=== PATIENT | female | born 1955 | race Caucasian/White ===

== ENCOUNTER → 2016-11-21 | Outpatient (CLI) | payer OTHER ==
[~2016-11-21] VITALS: Ht 167.6 cm; Wt 90.6 kg
[~2016-11-21] MED LIST: AUGM875T PO; BACT800T5 PO; BENZ100 PO; HYDR25TA5 PO; PROPOFOL 200 MG/20 ML AMP IV ONE; [UNRECOGNIZED DRUG - CODE] PO
[2016-11-21 09:18] VITALS: BP 143/79; PULSE 76; RESP 20; TEMP 97.7; O2SAT 97
[2016-11-21 12:40] VITALS: TEMP 97.7
[2016-11-21 13:00] VITALS: BP 145/76; PULSE 77; RESP 18; O2SAT 98
--- NOTE | 2016-11-21 13:30 | MR ---
cc: GENIA BISHOP M.D. DATE 11/21/2016 DATE OF 1955 INDICATION FOR THE PROCEDURE Evaluation of abdominal pain, screening colonoscopy average risk. Photographs were taken, no biopsies. PREMEDICATION Administered by anesthesiology. MONITORING Accomplished with pulse oximeter, EKG and blood pressure monitor. PROCEDURE NOTE After informed consent was obtained and the procedure, risks and benefits were explained including the risks of bleeding, sepsis, perforation, and the risk of anesthesia, the patient was placed in the left lateral position. The video colonoscope was inserted in the rectum. The colon exhibited a marginal prep with diffuse patchy thick liquefied stool throughout. This was cleared as best possible, but there were areas that were somewhat concentrated with this thick residual stool. Therefore, I could not rule out certain smaller polyps. The scope was advanced with difficulty to the cecal position. The patient had romano diverticulosis throughout moderate to severe. Multiple photographs were taken. The cecum was free of pathology. It was lavaged as best possible. The scope was gradually withdrawn. Once again, lavaging and cleaning the residual stool as best possible, but there was still some intact. Again I cannot rule out smaller lesions because of this marginal prep. I did not appreciate any colonic polyps, however, the mucosa did appear to be normal. The scope was removed. The patient tolerated the procedure well. She has some junctional hemorrhoids noted as well. IMPRESSION 1. Marginal prep with residual stool as outlined above. 2. Severe romano diverticulosis throughout the colon. 3. Exam was limited because of residual stool. PLAN Would recommend repeat colonoscopy in one to two years. We will discuss with the patient. Recommend a high fiber diet, fiber supplements. Continue antispasmodic therapy as well. MD DANIS Garzon/MCKINLEY /12:46 PM /1:27 PM
--- NOTE | 2016-11-21 14:50 | EKG ---
Date Performed: 11/21/2016 Time Performed: 09:56:19 PTAGE: 60 years EKG: Sinus rhythm NORMAL ECG NO PREVIOUS TRACING DOCTOR: Nam Alvarez Interpretating Date/Time 11/21/2016 14:49:06
== END ==
LOC: HEND 08:48
PROVIDERS: ATTEND Internal Medicine Gastroenterology
DX: R10.9 Unspecified abdominal pain (principal); K57.90 Diverticulosis of intestine, part unspecified, without perforation or abscess without bleeding; K64.8 Other hemorrhoids; I10 Essential (primary) hypertension; Z01.810 Encounter for preprocedural cardiovascular examination
CPT/HCPCS: 93005

== ENCOUNTER 2017-01-10 19:25 | Emergency (ER) | payer OTHER ==
[~2017-01-10] VITALS: Ht 167.6 cm; Wt 89.0 kg
[~2017-01-10 19:25] MED LIST changes: -AUGM875T PO; -BACT800T5 PO; -BENZ100 PO; -PROPOFOL 200 MG/20 ML AMP IV ONE; -[UNRECOGNIZED DRUG - CODE] PO
[2017-01-10 19:27] VITALS: BP 215/95; PULSE 108; RESP 16; TEMP 99; O2SAT 100
--- NOTE | 2017-01-10 19:45 | PD ---
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 Has had bleeding. Has had this for some time. Has uterine cancer and has appointment with cancer doctor on sunday. Concerned because of bleeding. Pelvic pain that comes and goes 5/10. Vitals are stable. Awaiting bed placement. Data Data Last Documented VS Vital Signs Date Time Temp Pulse Resp B/P Pulse Ox O2 Delivery O2 Flow Rate FiO2 01/10/17 19:27 99.0 108 16 215/[address] [facility] Medical Record Reviewed: Yes Supervised Visit with RICCO: No Juan Antonio Turk Jan 10, 2017 19:45
== END 2017-01-10 20:29 | disposition left against medical advice (07) ==
LOC: NED 20:20
DX: R10.2 Pelvic and perineal pain (principal); C55 Malignant neoplasm of uterus, part unspecified; Z53.21 Procedure and treatment not carried out due to patient leaving prior to being seen by health care provider
CPT/HCPCS: 99281

== ENCOUNTER 2017-01-22 13:02 | Inpatient (IN) | payer OTHER ==
[~2017-01-22] VITALS: Ht 167.6 cm; Wt 88.6 kg
[2017-01-23 06:37] VITALS: BP 154/86; PULSE 86; RESP 20; TEMP 98.3; O2SAT 98
[2017-01-23] MEDS ORDERED: HEPARIN SODIUM - SQ 10,000 UNITS/ML VIAL SQ SCH (06:45)
[2017-01-23] MEDS ORDERED: ceFAZolin 2 GM PREMIX 50 ML IV SCH (06:45)
[2017-01-23] MEDS ORDERED: POVIDONE IODINE 5% (ANTISEPSIS KIT) 4 APPLICATIONS EACH NARE PRN (07:15)
[2017-01-23] MEDS ORDERED: LACTATED RINGER'S 1000 ML IV PRN (07:15)
[2017-01-23] MEDS ORDERED: CHLORHEXIDINE GLUCONATE 2 % 1 PACK (2 CLOTHS) TOPICAL PRN (07:15)
[2017-01-23] MEDS ORDERED: INSULIN HUMAN REGULAR 1,000 UNITS/10 ML VIAL SQ PRN (07:15)
[2017-01-23] MEDS ORDERED: SODIUM CHLORID 0.9% 500 ML IV PRN (07:15)
[2017-01-23] MEDS ORDERED: METOPROLOL TARTRATE 25 MG TAB PO PRN (07:15)
[2017-01-23] MEDS ORDERED: DEXAMETHASONE SOD PHOS 4 MG/ML VIAL ONE (08:02)
[2017-01-23] MEDS ORDERED: ACETAMINOPHEN 1000 MG/100 ML VIAL IV ONE (08:02)
[2017-01-23] MEDS ORDERED: PHENYLEPH/NS 1000 MCG/10 ML SYR IV ONE (10:10)
[2017-01-23] MEDS ORDERED: PROPOFOL 200 MG/20 ML AMP IV ONE (10:10)
[2017-01-23] MEDS ORDERED: ePHEDrine/NS 25 MG/5 ML SYR IV ONE (10:10)
[2017-01-23] MEDS ORDERED: LACTATED RINGER'S 1000 ML INJ 1,000 ML IV ONE (10:11)
[2017-01-23] MEDS ORDERED: ONDANSETRON HCL 4 MG/2 ML VIAL IV PUSH ONE (10:11)
[2017-01-23] MEDS ORDERED: SUGAMMADEX SODIUM 200 MG/2 ML VIAL IV PUSH ONE ×2 (10:11)
[2017-01-23] MEDS ORDERED: NORMOSOL R INJ 1,000 ML IV ONE (10:12)
[2017-01-23] MEDS ORDERED: ceFAZolin INJ 1,000 MG VIAL IV ONE (11:28)
[2017-01-23] MEDS ORDERED: METHYLENE BLUE 10 MG/ML VIAL OTHER ONE (11:28)
[2017-01-23] MEDS: DEXT 5%-NACL 0.45% 1000 ML INJ 1,000 ML IV SCH ×2 (12:11→22:11)
[2017-01-23] MEDS ORDERED: D5-1/2 NS + KCL 20 MEQ INJ 1,000 ML IV SCH (12:11)
[2017-01-23] MEDS ORDERED: oxyCODONE/ACETAMINOPHEN 5 MG/325 MG TAB PO PRN (12:15)
[2017-01-23] MEDS ORDERED: NALOXONE HCL 0.4 MG/ML AMP IV PRN (12:15)
[2017-01-23] MEDS ORDERED: LORazepam 0.5 MG TAB PO PRN (12:15)
[2017-01-23] MEDS ORDERED: SODIUM CHLORIDE 0.9% FLUSH 10 ML FLUSH IV FLUSH PRN (12:15)
[2017-01-23] MEDS ORDERED: MORPHINE SULFATE 30 MG/30 ML PCA IV SCH (12:15)
[2017-01-23] MEDS ORDERED: ONDANSETRON HCL 4 MG/2 ML VIAL IVP PRN (12:15)
[2017-01-23] MEDS ORDERED: diphenhydrAMINE HCL 25 MG CAP PO PRN (12:15)
[2017-01-23] MEDS ORDERED: DO NOT ADM ANY ANTICOAGULANT DRUGS PRN (12:45)
[2017-01-23] MEDS ORDERED: MIDAZOLAM HCL 2 MG/2 ML VIAL ONE (12:52)
[2017-01-23] MEDS ORDERED: fentaNYL CITRATE 250 MCG/5 ML AMP ONE ×2 (12:53)
[2017-01-23] MEDS ORDERED: MORPHINE SULFATE 4 MG/ML INJ ONE (12:53)
[2017-01-23] MEDS: D5-1/2 NS + KCL 20 MEQ INJ 1,000 ML IV SCH (13:00)
[2017-01-23] MEDS: KETOROLAC TROMETHAMINE 30 MG/ML (IVP) VIAL IVP SCH ×2 (13:20→18:39)
[2017-01-23] MEDS: oxyCODONE/ACETAMINOPHEN 5 MG/325 MG TAB PO PRN ×2 (14:15→18:39)
[2017-01-23 14:21] VITALS: BP 137/73; PULSE 75; RESP 16; TEMP 96; O2SAT 100
[2017-01-23 15:50] VITALS: BP 136/73; PULSE 76; RESP 16; TEMP 97.5; O2SAT 100
[2017-01-23 19:29] LABS: HEMATOCRIT 34.8 % (35.0-46.0); MEAN CELL VOLUME 96.1 FL (80.0-100.0); MEAN CORPUSCULAR HGB CONC 32.3 % (32.0-36.0); PLATELET COUNT 353 TH/MM3 (150-450); RED BLOOD COUNT 3.63 MIL/MM3 (4.00-5.30); RED CELL DISTRIBUTION WIDTH 12.9 % (11.6-17.2); REVIEW FLAG FINAL; WHITE BLOOD COUNT 15.7 TH/MM3 (4.0-11.0)
[2017-01-23 20:00] VITALS: BP 151/81; PULSE 60; RESP 17; TEMP 97.3; O2SAT 100
[2017-01-23] MEDS: SODIUM CHLORIDE 0.9% FLUSH 10 ML FLUSH IV FLUSH SCH (21:00)
[2017-01-23] MEDS: PCA - TOTAL MG MORPHINE DELIVERED PER SHIFT SCH (22:55)
[2017-01-24] VITALS (8 sets, daily range): BP systolic 130–144; BP diastolic 58–66; PULSE 67–97; RESP 16–18; TEMP 96.3–100.3; O2SAT 97–100
[2017-01-24] MEDS: D5-1/2 NS + KCL 20 MEQ INJ 1,000 ML IV SCH ×3 (00:35→13:03)
[2017-01-24] MEDS: KETOROLAC TROMETHAMINE 30 MG/ML (IVP) VIAL IVP SCH ×4 (02:25→19:00)
[2017-01-24] MEDS: PCA - TOTAL MG MORPHINE DELIVERED PER SHIFT SCH ×3 (06:08→21:27)
[2017-01-24 07:49] LABS: AUTOMATED NEUTROPHIL # 6.8 TH/MM3 (1.8-7.7); BASOPHIL % 0.2 % (0.0-2.0); EOSINOPHIL % 0.5 % (0.0-4.0); HEMATOCRIT 29.3 % (35.0-46.0); HEMO FLAGS DIFF FINAL; LYMPH % 21.5 % (9.0-44.0); LYMPHOCYTE # 2.1 TH/MM3 (1.0-4.8); MEAN CELL VOLUME 96.4 FL (80.0-100.0); MEAN CORPUSCULAR HEMOGLOBIN 31.5 PG (27.0-34.0); MEAN CORPUSCULAR HGB CONC 32.7 % (32.0-36.0); MONO % 7.2 % (0.0-8.0); NEUT % 70.6 % (16.0-70.0); PLATELET COUNT 299 TH/MM3 (150-450); RED BLOOD COUNT 3.03 MIL/MM3 (4.00-5.30); WHITE BLOOD COUNT 9.6 TH/MM3 (4.0-11.0)
[2017-01-24 08:17] LABS: BICARBONATE 27.9 MEQ/L (21.0-32.0); POTASSIUM 3.6 MEQ/L (3.5-5.1)
[2017-01-24] MEDS: SODIUM CHLORIDE 0.9% FLUSH 10 ML FLUSH IV FLUSH SCH ×2 (13:02→21:28)
[2017-01-24] MEDS: DEXT 5%-NACL 0.45% 1000 ML INJ 1,000 ML IV SCH (17:54)
[2017-01-24] MEDS: oxyCODONE/ACETAMINOPHEN 5 MG/325 MG TAB PO PRN (21:27)
[2017-01-25] VITALS: BP 128/54; PULSE 92; RESP 18; TEMP 99.4; O2SAT 94
[2017-01-25] MEDS: KETOROLAC TROMETHAMINE 30 MG/ML (IVP) VIAL IVP SCH ×3 (00:38→13:24)
[2017-01-25] MEDS: DEXT 5%-NACL 0.45% 1000 ML INJ 1,000 ML IV SCH (04:11)
[2017-01-25] MEDS: PCA - TOTAL MG MORPHINE DELIVERED PER SHIFT SCH (05:58)
[2017-01-25 06:00] VITALS: BP 129/61; PULSE 88; RESP 17; TEMP 98; O2SAT 97
[2017-01-25 08:00] VITALS: BP 122/58; PULSE 73; RESP 20; TEMP 97.1; O2SAT 99
[2017-01-25] MEDS: SODIUM CHLORIDE 0.9% FLUSH 10 ML FLUSH IV FLUSH SCH ×2 (09:00→21:00)
[2017-01-25] MEDS: D5-1/2 NS + KCL 20 MEQ INJ 1,000 ML IV SCH (09:14)
[2017-01-25 12:53] VITALS: BP 128/60; PULSE 86; RESP 20; TEMP 99.2; O2SAT 98
--- NOTE | 2017-01-25 14:41 | MP ---
cc: DUTCH BELTRE MD, WENDY A. VAGOVIC, R. JOHN MD DATE OF SURGERY: 01/23/2017 PREOPERATIVE DIAGNOSIS Uterine sarcoma. POSTOPERATIVE DIAGNOSIS Uterine sarcoma. PROCEDURE Exploratory laparotomy, total abdominal hysterectomy, bilateral salpingo-oophorectomy, left pelvic lymph node biopsies, lysis of adhesions. SURGEON [place]. 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 ANESTHESIA General endotracheal. ESTIMATED BLOOD LOSS 600 cc. IV FLUIDS 2600 cc. URINE OUTPUT 400 cc. HISTORY A 61-year-old female who has been bleeding for a number of months, underwent evaluation, found to have an enlarged uterus with a prominent endometrium. 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 She was seen in the [facility] oncology office where these findings are reviewed. On exam the cervix was dilated with tumor extruding through the cervical os. The uterus was enlarged to approximately 14-16 cm on exam and imaging and exam showed widening of the lower uterine segment and cervix. Subsequently, she had a CAT scan of the chest. The CAT scan was clear. The abdomen and pelvis showed some retroperitoneal adenopathy in the left pelvis and left paraaortic region and some prominent fixed nodes in the paraaortic, pericaval region near the level of the renal vessels. She was counseled regarding the potential value of surgery and the potential need for additional treatment after surgery. She is seen again in the pre-op holding area where these findings are reviewed. Questions were answered. She expressed good understanding and agreed to move forward with surgery. FINDINGS Upon exploration the uterus is enlarged approximately 14-15 cm. The lower uterine segment and cervix are dilated. There are hypervascular changes around the cervix and lower uterine segment raising the possibility of microscopic tumor infiltration into these regions as well as vascular tissue between the bladder and lower uterine segment, and although there is no grossly visible tumor there is concern about possible tumor infiltration. The tubes and ovaries appear normal. Palpably enlarged lymph nodes are detected as shown by the CAT scan with a fixed conglomeration of lymph nodes high in the paraaortic pericaval region near the renal vessels. There are a couple of nodular borderline enlarged lymph nodes in the left pelvis. There were no peritoneal implants. The left-sided paraaortic adenopathy was not clearly palpable. She had extensive diverticulosis, especially in the descending colon, with some adhesions in the pelvis suggestive of possible prior diverticulitis. DETAILS OF PROCEDURE She is taken to the operating room, placed in dorsal lithotomy position. After general endotracheal anesthesia was administered a timeout was undertaken. She was identified by sight recognition and hospital ID syed, and the proposed procedure was reviewed and confirmed. She was prepped in sterile fashion and draped. Barrios catheter was placed. An incision was made from the symphysis to the umbilicus, carried down to the level of the fascia. The fascia was entered. The rectus muscles were in the midline. The peritoneal cavity was entered. A Bookwalter retractor was assembled. Lap pads were used to help facilitate surgical exposure after the anatomy was surveyed with findings as described above. The right round ligament was isolated. The anterior and posterior leafs of the broad ligament were opened. The right ligament was cauterized and secured using the Enseal instrument. Retroperitoneal dissection was carried out. The right ureter was identified. The right infundibulopelvic ligament was isolated. The intervening peritoneum was opened. The infundibulopelvic ligament was isolated near the level of the pelvic brim where it was doubly sealed and cut using the EnSeal. The bladder was densely adherent to the lower uterine segment and cervix. Sharp dissection was used to mobilize the bladder. There was some bleeding encountered and rendered hemostatic with bipolar cautery and local packing Attention was directed toward the left side. The left round ligament was isolated. The anterior and posterior leafs of the broad ligament were opened. Adhesions were taken down with sharp dissection to mobilize the colon from its attachment to the left pelvic structures and to free adhesions from the cul-de-sac. The left ureter was identified. The left infundibulopelvic ligament was isolated toward the level of the pelvic brim. The left gonadal vessels were doubly clamped, cut and doubly suture ligated. The uterine vessels were skeletonized bilaterally as further dissection was undertaken to mobilize the bladder flap. Scar tissue was eventually taken down. The bladder was able to be resected below the level of the cervix. The uterine vessels were then clamped, cautery sealed doubly bilaterally. The vessels were more prominent on the left side. There was some bleeding encountered so the left uterine vessels were then further clamped, cut and suture ligated. The cardinal, paracervical and uterosacral ligaments were isolated, clamped, sealed and transected in a stepwise fashion until curved Fernandez clamps were placed below the cervix at the lateral vaginal angles and sharp dissection was used to cut across the vagina below the cervix. The specimen was inspected, noted to be removed in its entirety including uterus, cervix, tubes and ovaries. The vaginal cuff was closed with interrupted [id number] 0 Vicryl suture starting at the corners, securing full-thickness including the edge of the uterosacral ligament and posterior peritoneum. [id number] sutures were continued in an interrupted fashion across the vaginal apex which rendered it completely hemostatic and well-supported. Palpation was used to again assess the anatomy. In the left pelvis there were two nodular enlargements that felt like prominent lymph nodes along the external iliac artery. Retroperitoneal dissection was carried out to isolate these lymph nodes using bipolar cautery and sharp dissection. These lymph nodes were removed and sent for permanent histopathologic analysis. The pelvis was thoroughly irrigated. Small bleeders were rendered hemostatic with bipolar cautery. 3-0 Vicryl sutures were used to reinforce the vascular pedicle on the left side. It was still showing some oozing. Inspected all sites and now hemostatic. Hemostatic agent Surgiflo was placed across the vaginal cuff and the lateral vaginal angles as well as the lymph node biopsy site. It was felt that the morbidity of attempting further lymph node dissection, especially high in the paraaortic region, would be associated with morbidity that exceeded benefit and it was felt that all reasonable surgical objectives in this individual had been completed. The lap pads and Bookwalter retractor were removed and disassembled. Visual and manual inspection confirmed there were no remaining foreign objects in the peritoneal cavity. Preliminary counts were correct. Prior to closing it should be noted that the integrity of the bladder was checked by filling the bladder with saline dyed with methylene blue. The bladder distended nicely under pressure and on visual and palpable inspection there were no areas of thinning of the bladder, certainly no extravasation of dye, good peristalsis of ureters bilaterally. The bladder was drained. The abdominal wall was closed with a running looped 0-PDS in a continuous modified Smead-Uriostegui fashion starting at the apices and meeting in the midpoint where sutures were tied. The subcutaneous tissue was irrigated. Geoff's fascia was re-approximated with 2-0 Vicryl suture. 3-0 Vicryl subcuticular was used to close the skin edges which was then covered with Steri-Strips and dry sterile dressing. Preliminary and final counts were correct. She was returned to dorsal supine position and was pending reversal of anesthesia when I left the operating room to precede her to the post-anesthesia care unit. MD MARISSA Leslie/PRABHAKAR /1:04 PM /2:13 PM
[2017-01-25 16:32] VITALS: BP 134/68; PULSE 81; RESP 20; TEMP 98.9; O2SAT 95
[2017-01-25] MEDS ORDERED: IBUPROFEN 400 MG TAB PO PRN (18:15)
[2017-01-25 20:00] VITALS: BP 135/72; PULSE 92; RESP 16; TEMP 99.2; O2SAT 98
[2017-01-26] VITALS: BP 121/58; PULSE 97; RESP 16; TEMP 98.3; O2SAT 96
[2017-01-26 04:00] VITALS: BP 116/61; PULSE 95; RESP 16; TEMP 97.9; O2SAT 93
[2017-01-26] MEDS ORDERED: OXYC1TAB63 PO (06:29)
[2017-01-26 08:00] VITALS: BP 121/58; PULSE 87; RESP 14; TEMP 98.2; O2SAT 96
[2017-01-26] MEDS: SODIUM CHLORIDE 0.9% FLUSH 10 ML FLUSH IV FLUSH SCH (09:00)
[2017-01-26 12:00] VITALS: BP 127/63; PULSE 90; RESP 14; TEMP 98.4; O2SAT 98
--- NOTE | 2017-01-30 13:04 | MD ---
cc: ARNOLDO CURRAN KELLY L. MD MORTON, WENDY A. ADMISSION DATE: 01/23/2017 DISCHARGE DATE: 01/26/2017 PROCEDURE 01/23 1017 - Exploratory laparotomy, total abdominal hysterectomy, bilateral salpingo-oophorectomy and left pelvic lymph node biopsies. DIAGNOSIS Uterine sarcoma. HOSPITAL COURSE She did well during hospitalization, tolerating oral intake, advanced to regular diet. Barrios catheter was removed; she voiding satisfactorily. She is hemodynamically stable. She has had adequate ins and outs. Postop H&H were 9.6 and 29.3, preserved renal function with BUN and creatinine 7 and 0.74. In the last 24 hours ins and outs 2141/1750 plus voiding. No nausea, vomiting, chest pain, shortness of breath. Positive flatus. Independent physical activity. PHYSICAL EXAMINATION VITAL SIGNS: Afebrile, pulse 81-97, respirations 16-20, blood pressure 116-135/58-72, O2 saturations greater than 95% while awake. GENERAL: Alert and oriented x 3, in no acute distress. LUNGS: Clear. She has some mild basilar rales. CARDIOVASCULAR: Regular rate and rhythm. ABDOMEN: Soft. Incisions clean and dry. QUICK SKETCH ARTIST: No bleeding. EXTREMITIES: Nontender. ASSESSMENT Postop day #3 doing well in her postoperative recovery. Subtle low grade temperature resolved, thought due to atelectasis. The findings and preliminary pathology were reviewed. The activities and restrictions were again discussed. Questions were answered. She expressed good understanding. PLAN Discharged to home. She has a prescription for Percocet for pain. She is not on any preexisting prescription medications and she is to contact our office to schedule followup in 2 weeks and to contact our office should she have any questions or problems between now the time of scheduled followup. MD MARISSA Leslie/SUSANNE /6:29 AM /12:55 PM
== END 2017-01-26 12:19 | disposition home or self-care (01) | DRG 740 ==
LOC: HSDI 01-23 06:30 → HOCB 01-23 13:50
PROVIDERS: ADMIT Obstetrics & Gynecology Gynecologic Oncology; ATTEND Obstetrics & Gynecology Gynecologic Oncology
PROC: 0UTC0ZZ Resection of Cervix, Open Approach (ICD-10-PCS; 2017-01-23)
PROC: 07BC0ZX Excision of Pelvis Lymphatic, Open Approach, Diagnostic (ICD-10-PCS; 2017-01-23)
PROC: 0UT20ZZ Resection of Bilateral Ovaries, Open Approach (ICD-10-PCS; 2017-01-23)
PROC: 0UT70ZZ Resection of Bilateral Fallopian Tubes, Open Approach (ICD-10-PCS; 2017-01-23)
PROC: 0UT90ZZ Resection of Uterus, Open Approach (ICD-10-PCS; principal; 2017-01-23 08:32)
DX: C55 Malignant neoplasm of uterus, part unspecified (principal); J98.11 Atelectasis; E66.9 Obesity, unspecified; I10 Essential (primary) hypertension; K57.30 Diverticulosis of large intestine without perforation or abscess without bleeding; Z68.31 Body mass index [BMI] 31.0-31.9, adult
CPT/HCPCS: 80048; 85025; 85027; 86850; 86900; 86901; 86920; 88305; 88307; 88309; 94150; J0131; J0690; J1100; J1644; J1885; J2250; J2270; J2370; J2405; J3010; J3480; J7120

== ENCOUNTER → 2017-01-22 | Outpatient (CLI) | payer OTHER ==
[~2017-01-22] MED LIST changes: -HYDR25TA5 PO; +IOHEXOL 350 MG/ML 10 ML VIAL (for RAD DIAG) IV ONE; +OXYC1TAB63 PO
--- NOTE | 2017-01-22 09:43 | RADRPT ---
EXAM DATE/TIME: 01/22/2017 08:04 [facility] COMPARISON: No previous studies available for comparison. INDICATIONS : Restaging; scheduled for hysterectomy/mastectomy 08/26/2016. IV CONTRAST: 100 cc Omnipaque 350 (iohexol) IV ; Cumulative dose for multiple exams. RADIATION DOSE: 18.75 CTDIvol (mGy) ; Combined studies - Thorax/Abdomen/Pelvis MEDICAL HISTORY : Carcinoma, breast. SURGICAL HISTORY : Cholecystectomy. section. ENCOUNTER: Initial ACUITY: 1 day PAIN SCALE: 0/10 LOCATION: Bilateral chest TECHNIQUE: Volumetric scanning of the chest was performed. Using automated exposure control and adjustment of t he mA and/or kV according to patient size, radiation dose was kept as low as reasonably achievable to obtain optimal diagnostic quality images. DICOM format image data is available electronically for review and comparison. Follow-up recommendations for incidentally detected pulmonary nodules are based at a minimum on nodul e size and patient risk factors according to Fleischner Society Guidelines. FINDINGS: LUNGS: There is no consolidation or pneumothorax. No concerning pulmonary nodule is visualized. PLEURA: There is no pleural thickening or pleural effusion. MEDIASTINUM: The heart and great vessels demonstrate no acute abnormality. There is no mediastinal or hilar lymph adenopathy. AXILLAE: Within normal limits. No lymphadenopathy. SKELETAL: Within normal limits for patient age. MISCELLANEOUS: The visualized upper abdominal organs demonstrate no acute abnormality. CONCLUSION: Normal examination. Rancho Mckeon MD on January 22, 2017 at 9:34 Board Certified Radiologist. This report was verified electronically.
--- NOTE | 2017-01-22 09:58 | RADRPT ---
EXAM DATE/TIME: 01/22/2017 08:04 [facility] COMPARISON: No previous studies available for comparison. INDICATIONS : Restaging; scheduled for hysterectomy/mastectomy 08/26/2016. IV CONTRAST: 100 cc Omnipaque 350 (iohexol) IV ; Cumulative dose for multiple exams. ORAL CONTRAST: No oral contrast ingested. RADIATION DOSE: 18.75 CTDIvol (mGy) ; Combined studies - Thorax/Abdomen/Pelvis MEDICAL HISTORY : Carcinoma, breast. SURGICAL HISTORY : Cholecystectomy. section. ENCOUNTER: Initial ACUITY: 1 day PAIN SCALE: 0/10 LOCATION: Bilateral abdomen TECHNIQUE: Volumetric scanning of the abdomen and pelvis was performed. Using automated exposure control and ad justment of the mA and/or kV according to patient size, radiation dose was kept as low as reasonably achievable to obtain optimal diagnostic quality images. DICOM format image data is available electro nically for review and comparison. FINDINGS: LOWER LUNGS: The visualized lower lungs are clear. LIVER: Homogeneous density without lesion. There is no dilation of the biliary tree. Gallbladder surgically absent.. SPLEEN: Normal size without lesion. PANCREAS: Within normal limits. KIDNEYS: Normal in size and shape. There is no mass, stone or hydronephrosis. ADRENAL GLANDS: Within normal limits. VASCULAR: There is no aortic aneurysm. BOWEL/MESENTERY: Colonic diverticulosis. No abnormal dilatation, wall thickening or focal inflammatory change. ABDOMINAL WALL: Within normal limits. RETROPERITONEUM: There are enlarged retroperitoneal lymph nodes identified with upper abdominal retroperitoneal nodes just below level of the renal vessels measuring 2.5 and 1.4 and 3.4 x 2.1 cm (long axis by short axis ), respectively. A slightly smaller node is present in the left para-aortic region of the lower abdom en. In the pelvis, there are couple of mildly prominent left pelvic sidewall nodes, largest about 17 mm in dimension. Several tiny contralateral right pelvic lymph nodes are present. BLADDER: No wall thickening or mass. REPRODUCTIVE: Enlarged uterus with heterogeneous central low density presumably fluid and mass in the endometrial c anal. INGUINAL: Shotty bilateral inguinal nodes MUSCULOSKELETAL: Within normal limits for patient age. CONCLUSION: Abnormal uterine appearance. Abdominal and pelvic retroperitoneal adenopathy Rancho Mckeon MD on January 22, 2017 at 9:41 Board Certified Radiologist. This report was verified electronically.
== END ==
LOC: HRAD 07:37
PROVIDERS: ATTEND Obstetrics & Gynecology Gynecologic Oncology
DX: C55 Malignant neoplasm of uterus, part unspecified (principal)
CPT/HCPCS: 71260; 74177; Q9967

== ENCOUNTER 2017-03-20 06:01 | Day surgery (SDC) | payer OTHER ==
[~2017-03-20] VITALS: Ht 167.6 cm; Wt 88.2 kg
[~2017-03-20 06:01] MED LIST changes: -IOHEXOL 350 MG/ML 10 ML VIAL (for RAD DIAG) IV ONE
[2017-03-20 06:47] VITALS: BP 173/96; PULSE 90; RESP 20; TEMP 98.2; O2SAT 96
[2017-03-20] MEDS ORDERED: ceFAZolin 2 GM PREMIX 50 ML - implanted port/tunneled catheter insertion IV SCH (07:00)
[2017-03-20] MEDS ORDERED: SODIUM CHLORIDE FLUSH PRN IV FLUSH (07:00)
[2017-03-20] MEDS ORDERED: VANCOMYCIN 1000 MG/NS 250 ML - implanted port/tunneled catheter IV SCH ×2 (07:00)
[2017-03-20] MEDS ORDERED: MIDAZOLAM HCL 5 MG/5 ML VIAL ONE (07:38)
[2017-03-20] MEDS ORDERED: SODIUM CHLORIDE FLUSH BID IV FLUSH SCH (09:00)
--- NOTE | 2017-03-20 09:06 | PD.RAD ---
Post Procedure Progress Note Pre Procedure Diagnosis: (1) Uterine sarcoma Post Procedure Diagnosis: (1) Uterine sarcoma Procedure Date: Mar 20, 2017 Supervising Radiologist: Diego Lantigua Estimated blood loss: 2CC Anesthesia: Local, Conscious Sedation Plan of Activity Patient to Unit: ROPU Patient Condition: Good Additional Comments: Port placed via the right IJ catheter in good position.OK for use full report to follow See PACS Report for procedural detail/treatment Diego Lantigua MD Mar 20, 2017 09:06
[2017-03-20 09:10] VITALS: BP 150/90; PULSE 98; RESP 18; TEMP 97.6; O2SAT 95
[2017-03-20] MEDS ORDERED: SODIUM CHLORIDE 0.9% FLUSH 10 ML FLUSH IVF PRN (09:15)
[2017-03-20 09:30] VITALS: BP 139/81; PULSE 87; RESP 16; O2SAT 97
--- NOTE | 2017-03-20 09:57 | RADRPT ---
EXAM DATE/TIME: 03/20/2017 07:56 [facility] COMPARISON: No previous studies available for comparison. INDICATIONS : Patient with a history of uterine cancer, needs chemotherapy. MEDICAL HISTORY : Anxiety Arthritis Eating disorders Inflammatory bowel disease Kidney stones Obsessive compulsive disorders Post menopausal bleeding Uterine carcinoma with metastatic disease SURGICAL HISTORY : Ankle surgery Cholecystectomy Colposcopy Tubal ligation Exploratory laparotomy with total hysterectomy ENCOUNTER: Initial ACUITY: 1 month PAIN SCORE: 0/10 FLUORO TIME: 0.6 minutes IMAGE SERIES: 1 SEDATION TIME: 45 minutes ACCESS: Right internal jugular vein SEDATION: 1.) 5 mg midazolam (Versed) IV 2.) 200 mcg fentanyl (Sublimaze) IV Prophylactic antibiotics were administered with appropriate pre-procedure timing. Vancomycin within 2 hours of procedure, Ancef (or alternative) within 1 hour of procedure. DEVICE: 1. 8 [place] single lumen Bard Power Port PROCEDURE : 1. Continuous pulse oximetry and EKG monitoring. 2. Intravenous conscious sedation. 3. Ultrasound guidance for venous access. 4. Fluoroscopic guided implantable central venous port placement. The patient was placed supine. The neck was prepped in sterile fashion. Full sterile technique was u sed, including cap, mask, sterile gloves and gown, and a large sterile sheet. Hand hygiene and 2% ch lorhexidine Betadine was utilized per protocol for cutaneous antisepsis with appropriate dry time for site. Sterile gel and sterile probe cover were utilized for ultrasound guidance. The skin and sub cutaneous tissues were infiltrated with local anesthetic solution. Under direct ultrasound guidance, central venous access was accomplished in the targeted vessel. The ultrasound images depicting access guidance were stored and saved to PACS for permanent record. A s ubcutaneous pocket was created using blunt dissection. The port was introduced to the pocket. The c atheter tubing was fed through a subcutaneous tunnel to the venotomy site. The catheter tubing was c ut to a suitable length and then was introduced through a valved Peel-Away sheath and positioned with catheter tubing tip at the cavo-atrial junction level. The pocket incision was closed with subcutic ular Vicryl suture. Steri-Strips were applied. The port was flushed and locked with heparin solutio n per protocol. Sterile dressing was applied to the site. The patient tolerated the procedure well. Conscious sedation was performed with the prescribed dosages and duration as above in the presence of an independent trained radiology nurse to assist in the monitoring of the patient. EKG and oximetry remained stable throughout the procedure. The patient tolerated the procedure well and there were no complications. The patient was sent to post anesthesia recovery in stable condition. CONCLUSION: Uncomplicated ultrasound and fluoroscopic guided implanted central venous port catheter placement as described in detail above. An 8 [place] Power port was placed. Diego Lantigua MD on March 20, 2017 at 9:55 Board Certified Radiologist. This report was verified electronically.
[2017-03-20 10:14] VITALS: BP 125/83; PULSE 77; RESP 16; O2SAT 97
[2017-03-20 10:15] VITALS: BP 128/75; PULSE 83; RESP 16; O2SAT 16
[2017-03-20 10:45] VITALS: BP 121/77; PULSE 82; RESP 16; O2SAT 96
== END 2017-03-20 11:17 | disposition home or self-care (01) ==
LOC: HROP 06:01 → HRIP 06:30 → HROP 11:17
PROVIDERS: ATTEND Obstetrics & Gynecology Gynecologic Oncology
DX: C55 Malignant neoplasm of uterus, part unspecified (principal); C79.9 Secondary malignant neoplasm of unspecified site; F41.9 Anxiety disorder, unspecified; M19.90 Unspecified osteoarthritis, unspecified site; F50.9 Eating disorder, unspecified; F42.8 Other obsessive-compulsive disorder; K58.9 Irritable bowel syndrome, unspecified; Z87.442 Personal history of urinary calculi
CPT/HCPCS: 36561; 76937; 77001; 99152; 99153; C1788; J0690; J1642; J2250; J3010; J3370; J7050